=== PATIENT | male | born 1935 | race Caucasian/White ===

== ENCOUNTER → 2017-02-18 | Outpatient (CLI) | payer OTHER ==
[~2017-02-18] MED LIST: ATEN50TA8; ATOR-22 PO; CALCTAB5 PO; CLB200 PO; GABA-113 PO; GLC500 PO; HYDR-5688 PO; LRT5 PO; MULT-506 PO; OMEG10007 PO; SERT-234 PO; SYN150 PO
[2017-02-18 09:26] LABS: BLOOD UREA NITROGEN 40 mg/dl (7-18); BUN/CREATININE RATIO 14.9 (10-20); PROSTATE SPECIFIC ANTIGEN 0.092 ng/ml (0.000-4.000)
--- NOTE | 2017-02-18 10:09 | DIAGNOSTIC IMAGING REPORT ---
ULTRASOUND KIDNEYS AND BLADDER CLINICAL HISTORY: Hydronephrosis. COMPARISON STUDY: Abdominal CT dated 01/08/2016. Nuclear renal scan dated 11/11/2014. Abdominal ultrasound dated 07/02/2015. TECHNIQUE: Real-time, grayscale, and color flow sonography of the kidneys and bladder is performed. Images are reviewed in the transverse and longitudinal planes. FINDINGS: Kidneys: The kidneys are atrophic. The right kidney measures 13.2 cm in length and the left kidney measures 12.9 cm in length. There is moderate to severe bilateral hydroureteronephrosis, increased from prior studies. Large extrarenal pelvises are observed.. No shadowing renal calculi are identified. Bilateral renal cysts measure up to 3.2 cm. There is no sonographic evidence of solid mass lesion. No perinephric fluid is identified. Bladder: The bladder is partially decompressed and grossly normal in appearance. Ureteral jets were not seen. The post residual volume measures 145 cc. A cystic structure in the left lower quadrant likely represents the reservoir for a penile implant. IMPRESSION: 1. The kidneys are atrophic. 2. There is moderate to severe bilateral hydroureteronephrosis. This has increased from prior studies. 3. The bladder was decompressed and is grossly normal in morphology. The post void residual volume measures 145 cc. Electronically signed by: Margarito Smallwood M.D. 02/18/2017 10:07 AM Dictated Date/Time: 02/18/2017 10:03 AM
== END | disposition home or self-care (01) ==
LOC: C.ULTR 08:36
PROVIDERS: ATTEND Urology
DX: N13.30 Unspecified hydronephrosis (principal); N32.0 Bladder-neck obstruction; N32.89 Other specified disorders of bladder

== ENCOUNTER → 2017-02-23 | Outpatient (CLI) | payer OTHER ==
--- NOTE | 2017-02-23 13:59 | DIAGNOSTIC IMAGING REPORT ---
RENAL ULTRASOUND HISTORY: Hydronephrosis N19 Renal [id number] COMPARISON: None. FINDINGS: Right kidney: Maximum dimension 12.1 cm. Several renal cysts. Moderate cortical thinning Left kidney: Maximum dimension 13.1 cm. Several small cysts. Normal corticomedullary differentiation and cortical thickness. bilateral renal hydronephrosis. This is similar compared to the prior study IMPRESSION: Stable bilateral renal hydronephrosis. Electronically signed by: Stephan Glez M.D. 02/23/2017 1:58 PM Dictated Date/Time: 02/23/2017 1:49 PM
[2017-02-23 15:07] LABS: BLOOD UREA NITROGEN 29 mg/dl (7-18); BUN/CREATININE RATIO 14.4 (10-20)
== END | disposition home or self-care (01) ==
LOC: C.ULTR 12:55
PROVIDERS: ATTEND Urology
DX: N19 Unspecified kidney failure (principal); N13.30 Unspecified hydronephrosis